=== PATIENT | male | born 1980 | race African-American/Black ===

== ENCOUNTER 2016-11-18 17:20 | Emergency (ER) | payer SELFPAY ==
[~2016-11-18] VITALS: Ht 190.5 cm; Wt 145.0 kg
[2016-11-18 17:28] VITALS: BP 195/135
[2016-11-18 18:13] LABS: EOSINOPHILS % 1.7 % (0.0-5.0); HEMATOCRIT. 47.3 % (42.0-52.0); HEMOGLOBIN. 15.6 g/dL (14.0-18.0); LYMPHOCYTES % 23.7 % (20.0-50.0); MEAN CORPUSCULAR HEMOGLOBIN 31.2 pg (28.0-32.0); MEAN CORPUSCULAR VOLUME 94.8 fL (80.0-94.0); MEAN PLATELET VOLUME 10.2 fl (7.4-10.4); MONOCYTES % 9.2 % (2.0-8.0); NEUTROPHILS % 64.4 % (40.0-76.0); PLATELET 257 x1000/uL (130-400); RED BLOOD CELL COUNT 4.99 mill/uL (4.7-6.1); RED CELL DISTRIBUTION WIDTH 13.4 % (11.6-14.6); WHITE BLOOD COUNT 12.9 x1000/uL (4.5-11.0)
[2016-11-18 18:21] LABS: PROTHROMBIN TIME 10.2 sec
[2016-11-18 18:22] LABS: ALBUMIN 3.9 g/dL (3.4-5.0); ANION GAP 12; CALCIUM 9.2 mg/dL (8.5-10.1); CARBON DIOXIDE 27 mEq/L (21-32); CHLORIDE 106 mEq/L (98-107); INDEX HEMOLYSI 1 (1-3); INDEX ICTERIC 1 (1-4); INDEX LIPEMIC 1 (1-3); UREA NITROGEN BLOOD 13 mg/dL (7-21)
[2016-11-18 18:27] LABS: ALANINE AMINOTRANSFERASE 37 IU/L (13-61); eGFR > 60 mL/min (>60)
[2016-11-18 18:29] LABS: NT PRO B-TYPE NATRIURETIC PEP 55 pg/mL (5-125); TROPONIN I < 0.02 ng/mL (0.00-0.04)
== END 2016-11-19 11:23 | disposition left against medical advice (07) ==
LOC: ER 17:21
DX: R07.89 Other chest pain (principal); Z53.21 Procedure and treatment not carried out due to patient leaving prior to being seen by health care provider
CPT/HCPCS: 36415; 80053; 83880; 84484; 85025; 85610; 93005; 99281